=== PATIENT | female | born 1970 | race Caucasian/White ===

== ENCOUNTER 2017-06-10 11:15 | Observation (INO) | END 2017-06-11 18:01 | disposition home or self-care (01) ==

== ENCOUNTER 2017-07-21 07:42 | Day surgery (SDC) | END 2017-07-21 14:30 | disposition home or self-care (01) ==

== ENCOUNTER 2018-03-19 13:46 | Emergency (ER) | END 2018-03-19 18:50 | disposition home or self-care (01) ==

== ENCOUNTER 2018-12-20 00:29 | Emergency (ER) | payer OTHER ==
[~2018-12-20] VITALS: Ht 157.5 cm; Wt 80.5 kg
[~2018-12-20 00:29] MED LIST: AMOX1TAB10 PO; ASPI-817 PO; CLOP75TA28 PO; FLUT9.9S NASAL; GABA100C14 PO; GLIP10TA14 PO; IBUP-1542 PO; LACT10SO21 PO; NADO40TA31 PO; NAPR-985 PO; OMEP20CA17 PO; ONDA4TAB8 PO; SUCR1TAB56 PO; TRAM50TA PO
[2018-12-20 00:40] VITALS: Ht 157.5 cm; Wt 80.5 kg
[2018-12-20] MEDS ORDERED: AMOXICILLIN/CLAV 875 MG TAB PO ONE (02:00)
[2018-12-20] MEDS ORDERED: HYDROCODONE/APAP (5/325) TAB PO ONE (03:00)
[2018-12-20] MEDS ORDERED: ONDANSETRON (ODT) 4 MG TAB ODT STA (04:29)
[2018-12-20 04:36] VITALS: BP 114/64; PULSE 67; RESP 18
== END 2018-12-20 04:36 | disposition home or self-care (01) ==
LOC: FTE 00:29
DX: J01.00 Acute maxillary sinusitis, unspecified (principal); R25.2 Cramp and spasm; E11.9 Type 2 diabetes mellitus without complications; R00.2 Palpitations; Z85.3 Personal history of malignant neoplasm of breast
CPT/HCPCS: 71046; 93005; 93970; Z7502; Z7610

== ENCOUNTER 2019-02-12 16:37 | Inpatient (IN) | payer OTHER ==
[~2019-02-12] VITALS: Ht 157.5 cm; Wt 85.7 kg
[~2019-02-12 16:37] MED LIST changes: -NAPR-985 PO
[2019-02-12] MEDS ORDERED: NITROGLYCERIN 2% 1 GM OINT PKT TD STA (16:52)
[2019-02-12] MEDS ORDERED: ASPIRIN 81 MG TAB PO STA (16:52)
[2019-02-12] MEDS: NITROGLYCERIN (SL) 0.4 MG TAB SL PRN ×2 (17:11→17:46)
[2019-02-12] MEDS ORDERED: SOD CHLORIDE 0.9% 1,000 ML IV STA (17:11)
[2019-02-12] MEDS ORDERED: morphine 4 MG/ML VIAL IV STA ×2 (17:11→18:25)
[2019-02-12] MEDS ORDERED: ONDANSETRON 4 MG INJ IV STA (17:11)
[2019-02-12] MEDS ORDERED: IOHEXOL 100 ML ONE (18:08)
[2019-02-12] MEDS ORDERED: SOD CHLORIDE 0.9% 100 ML ONE (18:08)
[2019-02-12] MEDS: SOD CHLORIDE 0.45% 1,000 ML IV SCH (19:21)
[2019-02-12] MEDS ORDERED: ACETAMINOPHEN 325 MG TAB PO PRN (19:30)
[2019-02-12] MEDS ORDERED: DOCUSATE SODIUM 100 MG CAP PO PRN (19:30)
[2019-02-12] MEDS ORDERED: ONDANSETRON 4 MG INJ IV PRN ×2 (19:30)
[2019-02-12] MEDS ORDERED: LORAZEPAM 2 MG INJ IV PRN (19:30)
[2019-02-12] MEDS ORDERED: ALBUTEROL/IPRATROPIUM (NEB) 3 ML AMP HHN PRN (19:30)
[2019-02-12] MEDS ORDERED: NITROGLYCERIN (SL) 0.4 MG TAB SL PRN (19:30)
[2019-02-12] MEDS ORDERED: hydrALAzine 20 MG INJ IV PRN (19:30)
[2019-02-12] MEDS ORDERED: NACL 0.9% 3 ML SYG IV SCH (19:30)
[2019-02-12] MEDS: HEPARIN 5,000 UNIT/1 ML VIAL SC SCH (20:47)
[2019-02-12] MEDS: morphine 2 MG INJ IV PRN (21:11)
[2019-02-13] MEDS ORDERED: DIPHENHYDRAMINE 25 MG CAP PO PRN (01:00)
[2019-02-13] MEDS ORDERED: ENOXAPARIN 100 MG/ML SYG SC STA (01:22)
[2019-02-13] MEDS ORDERED: morphine 4 MG/ML VIAL IV STA (01:49)
[2019-02-13] MEDS ORDERED: ONDANSETRON 4 MG INJ IV STA (01:49)
[2019-02-13] MEDS: PANTOPRAZOLE (EC) 40 MG TAB PO SCH (07:10)
[2019-02-13] MEDS ORDERED: ASPIRIN (EC) 325 MG TAB PO SCH (09:00)
[2019-02-13] MEDS ORDERED: NON-FORMULARY/PATIENT OWN MED (Omeprazole* 20 MG) PO SCH (09:00)
[2019-02-13] MEDS: HEPARIN 5,000 UNIT/1 ML VIAL SC SCH ×2 (09:25→22:43)
[2019-02-13] MEDS: SOD CHLORIDE 0.45% 1,000 ML IV SCH ×2 (11:33→22:01)
[2019-02-13] MEDS: morphine 4 MG/ML VIAL IV PRN ×2 (11:39→20:17)
[2019-02-13] MEDS ORDERED: traMADol 50 MG TAB PO PRN (13:30)
[2019-02-13] MEDS: LORAZEPAM 2 MG INJ IV PRN (14:27)
[2019-02-13] MEDS: HYDROCODONE/APAP (5/325) TAB PO PRN (14:28)
[2019-02-13] MEDS ORDERED: DEXTROSE 50% 50 ML SYRINGE IV PRN ×2 (15:30)
[2019-02-13] MEDS ORDERED: GLUCOSE GEL 15 GRAM TUBE BUCCAL PRN (15:30)
[2019-02-13] MEDS ORDERED: GLUCAGON 1 MG INJ IM PRN (15:30)
[2019-02-13] MEDS ORDERED: GLUCOSE GEL 15 GRAM TUBE PO PRN ×2 (15:30)
[2019-02-13] MEDS ORDERED: CLOPIDOGREL 75 MG TAB PO ONE (16:30)
[2019-02-13] MEDS: INSULIN ASPART [NOVOLOG] 3 ML PEN SC SCH ×2 (18:00→21:00)
[2019-02-13 18:20] VITALS: BP 129/69; PULSE 88; RESP 20
[2019-02-13 18:30] VITALS: BMI 33.7
[2019-02-13] MEDS: SUCRALFATE 1 GM TAB PO SCH ×2 (19:00→21:36)
[2019-02-13 19:15] VITALS: BP 118/64; PULSE 90; RESP 20
[2019-02-13] MEDS ORDERED: ISOSORBIDE DINITRATE 10 MG TAB PO SCH (21:00)
[2019-02-13] MEDS: ATORVASTATIN 40 MG TAB PO SCH (21:36)
[2019-02-13] MEDS: GABAPENTIN 100 MG CAP PO SCH (21:36)
[2019-02-13] MEDS: LACTULOSE 30ML CUP PO SCH (21:36)
[2019-02-13] MEDS: ONDANSETRON 4 MG INJ IV PRN (21:36)
[2019-02-13 23:51] VITALS: Ht 157.5 cm; Wt 85.7 kg
[2019-02-14] VITALS: BP 140/72; PULSE 110; RESP 19
[2019-02-14] MEDS: morphine 4 MG/ML VIAL IV PRN ×2 (00:22→04:42)
[2019-02-14] MEDS: SOD CHLORIDE 0.45% 1,000 ML IV SCH (02:22)
[2019-02-14 04:01] VITALS: BP 115/59; PULSE 104; RESP 19
[2019-02-14] MEDS: PANTOPRAZOLE (EC) 40 MG TAB PO SCH (05:48)
[2019-02-14] MEDS: glipiZIDE 10 MG TAB PO SCH (07:00)
[2019-02-14] MEDS: SUCRALFATE 1 GM TAB PO SCH ×4 (07:24→20:46)
[2019-02-14 07:37] VITALS: BP 105/60; PULSE 95; RESP 20
[2019-02-14] MEDS: INSULIN ASPART [NOVOLOG] 3 ML PEN SC SCH ×4 (08:00→21:00)
[2019-02-14] MEDS: LACTULOSE 30ML CUP PO SCH ×2 (08:35→12:19)
[2019-02-14] MEDS: morphine 2 MG INJ IV PRN (08:57)
[2019-02-14] MEDS: GABAPENTIN 100 MG CAP PO SCH ×3 (08:57→20:46)
[2019-02-14] MEDS ORDERED: ASPIRIN (EC) 325 MG TAB PO SCH (09:00)
[2019-02-14] MEDS: ACETAMINOPHEN 325 MG TAB PO PRN (09:09)
[2019-02-14] MEDS: ONDANSETRON 4 MG INJ IV PRN (09:11)
[2019-02-14] MEDS ORDERED: ONDANSETRON 4 MG INJ IV STA (09:46)
[2019-02-14 11:34] VITALS: BP 118/72; PULSE 100; RESP 20
[2019-02-14] MEDS: D5W-0.45 NACL + KCL 20 MEQ 1,000 ML IV SCH (12:04)
[2019-02-14] MEDS: ASPIRIN (EC) 81 MG TAB PO SCH (12:18)
[2019-02-14] MEDS: NADOLOL 40 MG TAB PO SCH (12:21)
[2019-02-14] MEDS: HEPARIN 5,000 UNIT/1 ML VIAL SC SCH ×2 (12:38→21:52)
[2019-02-14] MEDS: LORAZEPAM 2 MG INJ IV PRN (13:27)
[2019-02-14] MEDS: HYDROCODONE/APAP (5/325) TAB PO PRN (14:04)
[2019-02-14 15:26] VITALS: BP 117/72; PULSE 89; RESP 20
[2019-02-14] MEDS ORDERED: MAGNESIUM SULFATE 2 GM/50 ML 50 ML IVPB ONE (16:00)
[2019-02-14 19:12] VITALS: BP 105/59; PULSE 81; RESP 19
[2019-02-14] MEDS: METOCLOPRAMIDE 10 MG INJ IV SCH ×2 (19:24→23:59)
[2019-02-14] MEDS: ATORVASTATIN 40 MG TAB PO SCH (20:46)
[2019-02-15] VITALS (18 sets, daily range): BP systolic 94–136; BP diastolic 51–101; PULSE 68–82; RESP 11–20
[2019-02-15] MEDS: INSULIN ASPART [NOVOLOG] 3 ML PEN SC SCH ×6 (01:00→20:39)
[2019-02-15] MEDS: D5W-0.45 NACL + KCL 20 MEQ 1,000 ML IV SCH (02:08)
[2019-02-15] MEDS: morphine 4 MG/ML VIAL IV PRN (05:01)
[2019-02-15] MEDS: LEVOTHYROXINE 25 MCG TAB PO SCH (06:03)
[2019-02-15] MEDS: PANTOPRAZOLE (EC) 40 MG TAB PO SCH (06:03)
[2019-02-15] MEDS: METOCLOPRAMIDE 10 MG INJ IV SCH ×4 (06:04→23:49)
[2019-02-15] MEDS: SUCRALFATE 1 GM TAB PO SCH ×4 (06:07→20:45)
[2019-02-15] MEDS: glipiZIDE 10 MG TAB PO SCH (06:09)
[2019-02-15] MEDS ORDERED: LIDOCAINE 1% (MDV) 20 ML INJ ONE (07:11)
[2019-02-15] MEDS ORDERED: IODIXANOL LOCM 100 ML BTL ONE ×2 (07:11→07:54)
[2019-02-15] MEDS ORDERED: FENTAnyl 50 MCG/ML VIAL ONE (07:23)
[2019-02-15] MEDS ORDERED: MIDAZOLAM 1 MG/ML 2 ML INJ ONE (07:28)
[2019-02-15] MEDS ORDERED: ASPIRIN 81 MG TAB ONE (07:41)
[2019-02-15] MEDS ORDERED: CLOPIDOGREL 300 MG TAB ONE (07:41)
[2019-02-15] MEDS ORDERED: VERAPAMIL 5 MG INJ ONE (07:43)
[2019-02-15] MEDS ORDERED: BIVALIRUDIN 250MG /NS 50 ML 50 ML IVPB ONE (07:49)
[2019-02-15] MEDS ORDERED: IOHEXOL 350MG/ML 50 ML BTL ONE (07:49)
[2019-02-15] MEDS ORDERED: NITROGLYCERIN (IC) 100 MCG/ML INJ ONE (07:49)
[2019-02-15] MEDS ORDERED: SOD CHLORIDE 0.9% 1,000 ML IV SCH (08:28)
[2019-02-15] MEDS: CLOPIDOGREL 75 MG TAB PO SCH (09:00)
[2019-02-15] MEDS: LACTULOSE 30ML CUP PO SCH ×2 (09:00→20:36)
[2019-02-15] MEDS: ASPIRIN (EC) 81 MG TAB PO SCH (09:00)
[2019-02-15] MEDS: HEPARIN 5,000 UNIT/1 ML VIAL SC SCH ×2 (09:00→20:40)
[2019-02-15] MEDS ORDERED: ASPIRIN (EC) 81 MG TAB PO SCH (09:00)
[2019-02-15] MEDS: ACETAMINOPHEN 325 MG TAB PO PRN (09:19)
[2019-02-15] MEDS: GABAPENTIN 100 MG CAP PO SCH ×4 (11:20→20:36)
[2019-02-15] MEDS: NADOLOL 40 MG TAB PO SCH (11:21)
[2019-02-15] MEDS: morphine 2 MG INJ IV PRN ×3 (11:30→20:39)
[2019-02-15] MEDS: HYDROCODONE/APAP (5/325) TAB PO PRN (18:01)
[2019-02-15] MEDS: ATORVASTATIN 40 MG TAB PO SCH (20:36)
[2019-02-16] VITALS (24 sets, daily range): BP systolic 91–127; BP diastolic 51–79; PULSE 64–78; RESP 11–28
[2019-02-16] MEDS: INSULIN ASPART [NOVOLOG] 3 ML PEN SC SCH ×6 (01:00→20:35)
[2019-02-16] MEDS: morphine 2 MG INJ IV PRN ×2 (03:20→07:59)
[2019-02-16] MEDS: HYDROCODONE/APAP (5/325) TAB PO PRN ×2 (04:37→14:03)
[2019-02-16] MEDS: LEVOTHYROXINE 25 MCG TAB PO SCH (05:57)
[2019-02-16] MEDS: PANTOPRAZOLE (EC) 40 MG TAB PO SCH (05:57)
[2019-02-16] MEDS: METOCLOPRAMIDE 10 MG INJ IV SCH ×3 (05:58→17:00)
[2019-02-16] MEDS: CLOPIDOGREL 75 MG TAB PO SCH (08:36)
[2019-02-16] MEDS: LACTULOSE 30ML CUP PO SCH ×2 (08:36→20:31)
[2019-02-16] MEDS: NADOLOL 40 MG TAB PO SCH ×2 (08:36→09:00)
[2019-02-16] MEDS: ASPIRIN (EC) 81 MG TAB PO SCH (08:36)
[2019-02-16] MEDS: glipiZIDE 10 MG TAB PO SCH (08:37)
[2019-02-16] MEDS: GABAPENTIN 100 MG CAP PO SCH ×3 (08:37→20:31)
[2019-02-16] MEDS: SUCRALFATE 1 GM TAB PO SCH ×4 (08:37→20:31)
[2019-02-16] MEDS: HEPARIN 5,000 UNIT/1 ML VIAL SC SCH ×2 (08:39→20:35)
[2019-02-16] MEDS ORDERED: BISACODYL 10 MG SUPP PR ONE (10:00)
[2019-02-16] MEDS: MAGNESIUM HYDROXIDE 30ML CUP PO PRN (12:02)
[2019-02-16] MEDS: morphine 4 MG/ML VIAL IV PRN ×2 (15:33→20:33)
[2019-02-16] MEDS: ATORVASTATIN 40 MG TAB PO SCH (20:31)
[2019-02-17] VITALS (13 sets, daily range): BP systolic 86–125; BP diastolic 51–75; PULSE 62–87; RESP 11–19
[2019-02-17] MEDS: morphine 4 MG/ML VIAL IV PRN ×2 (00:40→05:20)
[2019-02-17] MEDS: METOCLOPRAMIDE 10 MG INJ IV SCH ×2 (00:40→05:19)
[2019-02-17] MEDS: INSULIN ASPART [NOVOLOG] 3 ML PEN SC SCH ×6 (00:42→21:00)
[2019-02-17] MEDS: MAGNESIUM HYDROXIDE 30ML CUP PO PRN (02:19)
[2019-02-17] MEDS ORDERED: BISACODYL 10 MG SUPP PR PRN (02:30)
[2019-02-17] MEDS: ONDANSETRON 4 MG INJ IV PRN (04:11)
[2019-02-17] MEDS: LEVOTHYROXINE 25 MCG TAB PO SCH (05:22)
[2019-02-17] MEDS: PANTOPRAZOLE (EC) 40 MG TAB PO SCH (05:22)
[2019-02-17] MEDS: LACTULOSE 30ML CUP PO SCH ×2 (09:00→22:13)
[2019-02-17] MEDS: ASPIRIN (EC) 81 MG TAB PO SCH (09:21)
[2019-02-17] MEDS: SUCRALFATE 1 GM TAB PO SCH ×4 (09:21→22:13)
[2019-02-17] MEDS: CLOPIDOGREL 75 MG TAB PO SCH (09:21)
[2019-02-17] MEDS: glipiZIDE 10 MG TAB PO SCH (09:22)
[2019-02-17] MEDS: GABAPENTIN 100 MG CAP PO SCH ×3 (09:22→22:13)
[2019-02-17] MEDS: NADOLOL 40 MG TAB PO SCH (09:22)
[2019-02-17] MEDS: HEPARIN 5,000 UNIT/1 ML VIAL SC SCH ×2 (09:32→22:17)
[2019-02-17] MEDS ORDERED: INSULIN ASPART [NOVOLOG] 3 ML PEN SC SCH (11:20)
[2019-02-17] MEDS ORDERED: HARD FAT/PHENYLEPHRINE SUPP PR ONE (11:30)
[2019-02-17] MEDS ORDERED: KETOROLAC 15 MG INJ IV STA (11:55)
[2019-02-17] MEDS: ATORVASTATIN 40 MG TAB PO SCH (22:12)
[2019-02-17] MEDS: LUBIPROSTONE 24 MCG CAP PO SCH (22:13)
[2019-02-18] VITALS: BP 119/65; PULSE 80; RESP 17
[2019-02-18] MEDS: morphine 4 MG/ML VIAL IV PRN (00:31)
[2019-02-18 05:24] VITALS: BP 120/70; PULSE 77; RESP 17
[2019-02-18] MEDS: LEVOTHYROXINE 25 MCG TAB PO SCH (07:06)
[2019-02-18] MEDS: PANTOPRAZOLE (EC) 40 MG TAB PO SCH (07:07)
[2019-02-18] MEDS: INSULIN ASPART [NOVOLOG] 3 ML PEN SC SCH ×2 (07:25→11:20)
[2019-02-18 07:29] VITALS: BP 94/54; PULSE 69; RESP 16
[2019-02-18] MEDS: GABAPENTIN 100 MG CAP PO SCH ×2 (08:30→12:32)
[2019-02-18] MEDS: LACTULOSE 30ML CUP PO SCH (08:30)
[2019-02-18] MEDS: LUBIPROSTONE 24 MCG CAP PO SCH (08:30)
[2019-02-18] MEDS: CLOPIDOGREL 75 MG TAB PO SCH (08:30)
[2019-02-18] MEDS: SUCRALFATE 1 GM TAB PO SCH ×2 (08:30→12:32)
[2019-02-18] MEDS: glipiZIDE 10 MG TAB PO SCH (08:30)
[2019-02-18] MEDS: ASPIRIN (EC) 81 MG TAB PO SCH (08:30)
[2019-02-18] MEDS: NADOLOL 40 MG TAB PO SCH ×2 (08:31→12:49)
[2019-02-18] MEDS: HEPARIN 5,000 UNIT/1 ML VIAL SC SCH (08:34)
[2019-02-18] MEDS ORDERED: BISACODYL 10 MG SUPP PR PRN (09:00)
[2019-02-18 12:10] VITALS: BP 119/59; PULSE 79; RESP 18
[2019-02-18] MEDS ORDERED: HEPARIN (100 UNITS/ML) 5 ML SYG CATHETER ONE (15:00)
== END 2019-02-18 15:49 | disposition home or self-care (01) | DRG 247 ==
LOC: E/R 16:37 → 6WM 02-13 08:10 → OBSVTOIN 02-14 10:14 → ICU 02-15 08:56 → TEL 02-17 06:23
PROVIDERS: ADMIT Internal Medicine; ATTEND Internal Medicine
PROC: 027034Z Dilation of Coronary Artery, One Artery with Drug-eluting Intraluminal Device, Percutaneous Approach (ICD-10-PCS; principal; 2019-02-15)
PROC: 02C03ZZ Extirpation of Matter from Coronary Artery, One Artery, Percutaneous Approach (ICD-10-PCS; 2019-02-15)
PROC: 4A023N7 Measurement of Cardiac Sampling and Pressure, Left Heart, Percutaneous Approach (ICD-10-PCS; 2019-02-15)
PROC: B211YZZ Fluoroscopy of Multiple Coronary Arteries using Other Contrast (ICD-10-PCS; 2019-02-15)
DX: I21.4 Non-ST elevation (NSTEMI) myocardial infarction (principal); I10 Essential (primary) hypertension; E78.5 Hyperlipidemia, unspecified; K74.60 Unspecified cirrhosis of liver; Z79.4 Long term (current) use of insulin; Z85.3 Personal history of malignant neoplasm of breast; Z90.12 Acquired absence of left breast and nipple; R51 Headache; K59.00 Constipation, unspecified; E11.43 Type 2 diabetes mellitus with diabetic autonomic (poly)neuropathy; K31.84 Gastroparesis
CPT/HCPCS: 36415; 70450; 70545; 70552; 71045; 71275; 74018; 76705; 80048; 80053; 80061; 81025; 82550; 82553; 82962; 83036; 83735; 83880; 84100; 84439; 84443; 84484; 84703; 85025; 85610; 85730; 92928; 92978; 93005; 93306; 93458; 93970; 96374; 96375; 96376; 97162; G0378; C1725; C1757; C1874; C1887; C1894; J0583; J1644; J1650; J1815; J1885; J2060; J2250; J2270; J2405; J2765; J3010; J3475; J3480; J7030; Q9967